=== PATIENT | male | born 1945 | race Caucasian/White ===

== ENCOUNTER → 2019-09-01 10:29 | Outpatient (CLI) | payer MEDICARE, SELFPAY ==
--- NOTE | 2019-09-01 10:50 | CT_ITS ---
STUDY: CT ABDOMEN AND PELVIS WITHOUT CONTRAST REASON FOR EXAM: Male, 74 years old. RADIATION DOSAGE (If Supplied By Facility): CTDIvol = ( 8.57 ) mGy, DLP = ( 417.55 ) mGycm TECHNIQUE: Transaxial images were obtained from the dome of the diaphragm to the symphysis pubis without oral contrast, and without intravenous contrast. Sagittal and coronal images were reconstructed. Individualized dose optimization techniques were used for this CT. COMPARISON: None. FINDINGS: The visualized lung bases are unremarkable. The visualized portions of the heart are within normal limits. Normal liver. Normal gallbladder and extrahepatic biliary system. The spleen is normal in size with tiny calcified granulomas present. Normal pancreas. Normal bilateral adrenal glands. Normal right kidney. Normal left kidney. The stomach is filled with food and fluid. Normal small intestine. Multiple diverticulosis noted in the sigmoid colon without diverticulitis The appendix is visualized and appears normal. There is aneurysmal dilatation of the aorta from the level of the diaphragm down to the iliac vessels. Normal inferior vena cava. Normal retroperitoneum. Normal urinary bladder. Multiple metallic clips seen in the pelvis including the prostate. No ascites. Normal abdominal wall. Normal osseous structures except for mild hypertrophic changes present in the. CT/Abdomen/Pelvis without Cont IMPRESSION: Mild aneurysmal dilatation of the abdominal aorta. The study is limited because of lack of contrast Electronically Signed: Morenita Gonzalez, at 12:02 EST Tel , Service support ,
== END ==
PROVIDERS: Family Provider Family Medicine; PCP Family Medicine; Referring Provider Nurse Practitioner Adult Health; Visit Provider Nurse Practitioner Adult Health
DX: Z87.440 Personal history of urinary (tract) infections (principal)
CPT/HCPCS: 74176